=== PATIENT | male | born 1995 | race Caucasian/White ===

== ENCOUNTER 2022-07-10 21:09 | Emergency (ER) | payer SELFPAY ==
[2022-07-10] MEDS ORDERED: Polyethylene Glycol 3350 Powder 17 GM Packet PO ONE (21:25)
[2022-07-10] MEDS ORDERED: Take Home: Ondansetron 4 MG Tab.DIS, 5 Tab Pack PO ONE (21:26)
== END 2022-07-10 22:09 | disposition other institution (70) ==
LOC: EDBD → VM.ED 21:09 → MERGE 21:09 → VM.ED 22:09
DX: K59.00 Constipation, unspecified (principal); R11.2 Nausea with vomiting, unspecified
CPT/HCPCS: 99283; 99284; A9270-GY; Q0162